=== PATIENT | female | born 1995 | race Caucasian/White ===

== ENCOUNTER 2017-06-07 15:32 | Emergency (ER) | payer OTHER ==
[~2017-06-07] VITALS: Ht 180.3 cm; Wt 71.4 kg
[2017-06-07 15:38] VITALS: TEMP 36.8; Ht 180.3 cm; Wt 71.4 kg
[2017-06-07] MEDS ORDERED: ONDANSETRON INJ 2 MG/ML 2 ML VIAL IV STA (16:12)
[2017-06-07] MEDS ORDERED: SODIUM CHLORIDE 0.9% 1000ML 1,000 ML IV STA (16:12)
[2017-06-07 16:49] LABS: BASO % 0.1 %; BASO ABS # 0.01 K/uL (0-0.2); COMPLETE YES; EOS % 0.4 %; HEMATOCRIT 40.2 % (37-47); IG% 0.2 %; LYMPH % 16.3 %; LYMPH ABS # 1.38 K/uL (1.2-3.4); MEAN CELL VOLUME 87.6 fL (80-100); MEAN CORPUSCULAR HEMOGLOBIN 30.5 pg (25-34); MEAN CORPUSCULAR HGB CONC 34.8 g/dl (32-36); MEAN PLATELET VOLUME 10.1 fL (7.4-10.4); MONO % 6.3 %; NEUT % 76.7 %; PLATELET COUNT 167 K/uL (130-400); RED BLOOD COUNT 4.59 M/uL (4.2-5.4); WHITE BLOOD COUNT 8.46 K/uL (4.8-10.8)
--- NOTE | 2017-06-07 16:59 | DIAGNOSTIC IMAGING REPORT ---
CHEST 2 VIEWS ROUTINE HISTORY: 21 years-old Female ABDOMINAL PAIN/GI acute generalized abdominal pain. Initial exam. COMPARISON: None available. TECHNIQUE: Frontal and lateral views of the chest FINDINGS: Cardiomediastinal and hilar silhouettes are within normal limits. There is no pneumothorax, pleural effusion, focal airspace consolidation or overt pulmonary edema. Bones are grossly intact. IMPRESSION: No acute cardiopulmonary process. The above report was generated using voice recognition software. It may contain grammatical, syntax or spelling errors. Electronically signed by: Carlos Casillas M.D. 06/07/2017 4:58 PM Dictated Date/Time: 06/07/2017 4:57 PM
[2017-06-07 17:13] LABS: BUN/CREATININE RATIO 15.4 (10-20); CALCIUM 9.2 mg/dl (8.5-10.1); CREATININE 0.78 mg/dl (0.60-1.20); POTASSIUM 3.7 mmol/L (3.5-5.1)
--- NOTE | 2017-06-07 17:50 | DIAGNOSTIC IMAGING REPORT ---
GALLBLADDER-ABD LIMITED HISTORY: 21 years-old Female ABDOMINAL PAIN/GI acute generalized abdominal pain. COMPARISON: Chest radiograph 06/07/2017 TECHNIQUE: Multiple real-time sonographic images of the abdominal right upper quadrant were obtained assessing grayscale appearance and color flow FINDINGS: The imaged portions of the pancreas are unremarkable with distal body and tail obscured by bowel gas. The liver is within normal limits measuring up to 17.8 cm. Gallbladder is mildly contracted with expected mild wall thickening, 0.4 cm. No shadowing cholelithiasis or pericholecystic fluid collections. No right upper quadrant tenderness reported. Common bile duct measures 0.3 cm, within normal limits. Right kidney is unremarkable without hydronephrosis. IMPRESSION: 1. Mildly contracted gallbladder is likely secondary to recent oral intake. No cholelithiasis or sonographic evidence of acute cholecystitis. 2. No biliary ductal dilation. The above report was generated using voice recognition software. It may contain grammatical, syntax or spelling errors. Electronically signed by: Carlos Casillas M.D. 06/07/2017 5:49 PM Dictated Date/Time: 06/07/2017 5:46 PM
[2017-06-07 18:33] LABS: URINE APPEARANCE TURBID (CLEAR); URINE BILIRUBIN NEG (NEG); URINE COLOR YELLOW; URINE NITRITE NEG (NEG); URINE SPECIFIC GRAVITY 1.025 (1.000-1.030); UROBILINOGEN NEG (NEG)
[2017-06-07 18:35] LABS: REVIEW REQ? NO
[2017-06-07 18:36] LABS: MANUAL MICROSCOPIC REQUIRED? NO
[2017-06-07] MEDS ORDERED: ONDA4TAB46 PO (18:49)
[2017-06-07] MEDS ORDERED: ONDANSETRON HOME PACK 4MG OD TAB PO ONE (19:00)
[2017-06-07 19:04] VITALS: BP 107/73; PULSE 64; O2SAT 100
--- NOTE | 2017-06-08 01:58 | EMERGENCY ROOM VISIT NOTE ---
ED Visit Note First contact with patient: 15:52 Chief Complaint: Having pain in under my belly button. History of Present Illness: Ms. Tubbs is a 21 year-old white female who ambulates into the ED complaining of right upper quadrant and epigastric abdominal pain. Historically patient reports no history of gastrointestinal disorders or abdominal surgeries. Patient reports a gradual onset of epigastric and right upper quadrant abdominal pain that started 1.5 weeks ago. Since that time the pain has been on standing gradually increased in intensity. The pain is currently described achy sensation. She rates the discomfort 6/10. The pain does wax and wane in intensity. She reports using acetaminophen without relief of her discomfort. Her pain is always worsened during eating and sometimes with flexion at the waist. She has not identified any alleviating factors. She reports she's been using acetaminophen without relief of her discomfort. Associated with her symptoms she reports she has been having chills, when the pain exacerbates she develops nausea but has not vomited and she has had a decreased appetite. Patient denies fevers, sweats, skin eruptions, skin color changes, upper respiratory tract symptoms, shortness of breath, chest pain, diarrhea, constipation, rectal bleeding, black/tarry stools, urinary symptoms, hematuria, vaginal bleeding, vaginal discharge, back/flank pain. Review of Systems: As noted above in history of present illness. All body systems were reviewed and found to be negative as noted above. Past Medical History: Patient denies. Current Medications: Patient denies. Allergies to Medications: Patient denies. Social History: Patient is [employer] student; she feels safe in her home environment; she denies tobacco use. Physical Examination: Vital Signs: Date Time Temp Pulse Resp B/P (MAP) Pulse Ox O2 Delivery O2 Flow Rate FiO2 06/07/17 19:04 64 18 107/73 100 06/07/17 17:44 68 06/07/17 17:39 75 119/69 96 Room Air 06/07/17 15:38 36.8 75 16 134/95 99 Room Air GENERAL: 21-year-old female in mild distress due to pain, nontoxic-appearing, afebrile and hemodynamically stable. NEUROLOGICAL: Awake, alert and oriented to person, place and time. Answering questions appropriately and following commands. Normal gait. Good hand eye coordination. SKIN: Warm, dry and pink. No soft tissue eruptions or trauma noted. HEENT: Atraumatic and normocephalic. PERRLA. Sclera white and conjunctiva pink. Oral cavity moist and pink. Pharynx is nonerythematous or edematous. Speech normal. No lymphadenopathy. Trachea midline. No jugular venous distention. BACK: No tenderness over the bony spine. No CVA tenderness. THORAX: Lungs sounds are clear to auscultation and equal bilaterally with symmetrical chest wall. No wheezing, rales or rhonchi. No crepitus, tenderness , subcutaneous air or deformities noted. HEART: Regular rate and rhythm. No gallops, rubs or murmurs are appreciated. ABDOMEN: Flat and soft with mild tenderness in the epigastrium and right upper quadrant. He creased bowel sounds in all quadrants. No guarding, rigidity or organomegaly. EXTREMITIES: Moves all extremities well on command and with purpose. All distal neurovascular statuses are intact and equal bilaterally. ED Course: Patient is assessed as noted above. Patient's medication list was reviewed. Laboratory Testing: Test 06/07/17 16:30 Range/Units White Blood Count 8.46 4.8-10.8 K/uL Red Blood Count 4.59 4.2-5.4 M/uL Hemoglobin 14.0 12.0-16.0 g/dL Hematocrit 40.2 37-47 % Mean Corpuscular Volume 87.6 80-100 fL Mean Corpuscular Hemoglobin 30.5 25-34 pg Mean Corpuscular Hemoglobin Concent 34.8 32-36 g/dl Platelet Count 167 130-400 K/uL Mean Platelet Volume 10.1 7.4-10.4 fL Neutrophils (%) (Auto) 76.7 % Lymphocytes (%) (Auto) 16.3 % Monocytes (%) (Auto) 6.3 % Eosinophils (%) (Auto) 0.4 % Basophils (%) (Auto) 0.1 % Neutrophils # (Auto) 6.49 1.4-6.5 K/uL Lymphocytes # (Auto) 1.38 1.2-3.4 K/uL Monocytes # (Auto) 0.53 0.11-0.59 K/uL Eosinophils # (Auto) 0.03 0-0.5 K/uL Basophils # (Auto) 0.01 0-0.2 K/uL RDW Standard Deviation 38.6 36.4-46.3 fL RDW Coefficient of Variation 12.1 11.5-14.5 % Immature Granulocyte % (Auto) 0.2 % Immature Granulocyte # (Auto) 0.02 0.00-0.02 K/uL Urine Color YELLOW Urine Appearance TURBID CLEAR Urine pH 8.0 4.5-7.5 Urine Specific [place] 1.025 1.000-1.030 Urine Protein NEG NEG Urine Glucose (UA) NEG NEG Urine Ketones NEG NEG Urine Occult Blood NEG NEG Urine Nitrite NEG NEG Urine Bilirubin NEG NEG Urine Urobilinogen NEG NEG Urine Leukocyte Esterase NEG NEG Urine WBC (Auto) 1-5 0-5 /hpf Urine RBC (Auto) 0-4 0-4 /hpf Urine Hyaline Casts (Auto) 1-5 0-5 /lpf Urine Epithelial Cells (Auto) 10-20 0-5 /lpf Urine Bacteria (Auto) NEG NEG Urine Test NEG NEG Sodium Level 141 136-145 mmol/L Potassium Level 3.7 3.5-5.1 mmol/L Chloride Level 107 98-107 mmol/L Carbon Dioxide Level 26 21-32 mmol/L Anion Gap 8.0 3-11 mmol/L Blood Urea Nitrogen 12 7-18 mg/dl Creatinine 0.78 0.60-1.20 mg/dl Est Creatinine Clear Calc Drug Dose 127.5 ml/min Estimated GFR () 126.0 Estimated GFR (Non- 108.7 BUN/Creatinine Ratio 15.4 10-20 Random Glucose 82 70-99 mg/dl Calcium Level 9.2 8.5-10.1 mg/dl Total Bilirubin 0.8 0.2-1 mg/dl Direct Bilirubin 0.3 0-0.2 mg/dl Aspartate Amino Transf (AST/SGOT) 17 15-37 U/L Alanine Aminotransferase (ALT/SGPT) 16 12-78 U/L Alkaline Phosphatase 63 45-117 U/L Total Protein 7.2 6.4-8.2 gm/dl Albumin 4.4 3.4-5.0 gm/dl Lipase 149 73-393 U/L Gallbladder Ultrasound: Was reviewed by myself and read by the radiologist showing a mildly contracted gallbladder without cholelithiasis or acute cholecystitis. No biliary duct dilatation. Chest X-Rays: Were read by myself and the radiologist showing no acute infiltrates, effusions or pneumothorax. Normal heart silhouette and bony anatomy. Patient was hydrated with normal saline and she received 4 mg of Zofran IV for nausea; she was offered pain medications multiple times and refused. Patient was reassessed multiple times during her stay in the emergency department. Patient's case was reviewed with Dr. Rae; we agreed on diagnostic approach, treatment, disposition and plan. Patient was educated about today's findings and instructed on her treatment plan ; they verbalized understanding and agreement with this plan. Clinical Impression: Right upper quadrant abdominal pain. Decision-Making: Initially my differential diagnosis I considered pneumonia, hepatitis, pancreatitis, cholecystitis, biliary colic, constipation, bowel structure and and other causes. Disposition: Patient discharged home in stable condition; prior to departure she was reassessed and subjectively reported that she was pain and symptom-free. Plan: Patient was encouraged to use 650 mg of acetaminophen every 6 hours as needed for pain and to avoid NSAIDs. Patient was prescribed Zofran 4 mg every 6 hours as needed for nausea/vomiting. Patient was encouraged to use a bland diet and avoid stomach irritants. Patient was encouraged to follow-up with her family physician for follow-up care and possible referral to general surgery. Patient was encouraged to return to the ED for worsening/uncontrolled symptoms, uncontrolled vomiting, bloody vomitus, bloody stools, fevers or any new/ concerning symptoms.
== END 2017-06-07 19:04 | disposition home or self-care (01) ==
LOC: C.EDB 15:36
DX: R10.11 Right upper quadrant pain (principal)